=== PATIENT | female | born 1945 | race Caucasian/White ===

== ENCOUNTER 2018-09-19 09:33 | Outpatient (CLI) | payer MEDICARE ==
--- NOTE | 2018-09-19 10:46 | ULT ---
RIGHT UPPER QUADRANT ULTRASOUND: 09/19/2018 HISTORY: Right upper quadrant pain/epigastric pain. COMPARISON: None. TECHNIQUE: Multiplanar rich-scale sonographic imaging of the right upper quadrant provided. FINDINGS: The imaged pancreas is unremarkable. The distal body and tail are obscured by bowel gas. No focal l iver lesion or intrahepatic biliary dilatation noted. The common bile duct measures 3-4 mm, within n ormal limits. The videogame tester reports a negative Roque sign. No gallbladder wall thickening or pericholecystic fl uid. No gallstones are noted. The right kidney measures 9.7 cm in craniocaudal dimension. There is an echogenic area within the mi d pole of the right kidney, measuring 1.1 cm, with posterior shadowing, suggesting a prominent calcif ication and/or calcified mass. When compared to a prior CT of the abdomen and pelvis performed on , there is a focal area of benign appearing calcification within the mid pole of the right ki dney. IMPRESSION: No acute findings. POS: [facility]
== END 2018-09-19 09:34 | disposition home or self-care (01) ==
LOC: BICULT 09:33
PROVIDERS: ATTEND Internal Medicine Gastroenterology
DX: K58.1 Irritable bowel syndrome with constipation (principal); R10.11 Right upper quadrant pain; Z86.010 Personal history of colon polyps
CPT/HCPCS: 76705

== ENCOUNTER 2018-10-06 15:52 | Inpatient (IN) | payer MEDICARE ==
--- NOTE | 2018-10-06 17:48 | RAD ---
AP VIEW PELVIS: Date: 10/06/18 HISTORY: Fall with pain. FINDINGS: AP view of pelvis obtained and demonstrates a mildly displaced right femoral neck fracture. No other pelvic fractures seen. IMPRESSION: Mildly displaced right femoral neck fracture. POS: [facility]
--- NOTE | 2018-10-06 17:50 | RAD ---
RIGHT HIP TWO VIEWS: HISTORY: Fall with pain. TECHNIQUE: AP and lateral views of the right hip are obtained. FINDINGS: Images demonstrate an area of lucency seen in the right femoral neck, concerning for a minimally disp laced right femoral neck fracture. The rest of right hip is unremarkable. IMPRESSION: Right femoral neck fracture. This was not visible on the patient's previous radiograph from 09/25/19. POS: [facility]
[2018-10-06] MEDS ORDERED: Morphine 4 MG/ML VIAL ONE ×2 (18:58→20:09)
--- NOTE | 2018-10-06 19:26 | RAD ---
AP VIEW CHEST: HISTORY: Preoperative chest radiograph. FINDINGS: AP view chest demonstrates calcification of the aorta. Mild cardiomegaly is seen. No evidence of ef fusions, pneumonia, or pneumothorax is seen. IMPRESSION: Unremarkable anterior-posterior view chest. POS: [facility]
[2018-10-06 19:29] LABS: #Basophils 0.1 thou/uL (0.0-0.2); #Eosinphils 0.1 thou/uL (0.0-0.7); #Lymphocytes 3.2 thou/uL (1.20-3.40); #Monocytes 0.7 thou/uL (0.11-0.59); #Neutrophils 8.2 thou/uL (1.40-6.50); %Eosinophils 1.1 % (0.0-10.0); %Monocytes 5.5 % (0.0-10.0); %Neutrophils 66.5 % (42.0-75.0); Hemoglobin 13.4 g/dL (12.0-16.0); Mean Corpuscular HGB CONC 32.6 g/dL (32.0-36.0); Mean Corpuscular Hemoglobin 30.9 pg (27.0-31.0); Mean Corpuscular Volume 94.9 fL (78.0-98.0); Mean Platelet Volume 7.9 fL (7.4-10.4); Platelet Count 254 thou/uL (130-400); Red Blood Cell (RBC) Count 4.32 mill/uL (4.20-5.40); White Blood Cell (WBC) Count 12.3 thou/uL (4.8-10.8)
[2018-10-06 19:34] LABS: PTT 31.2 SEC (22.9-36.1)
[2018-10-06 19:35] LABS: Prothrombin Time 13.1 SEC (12.0-14.7)
[2018-10-06 19:50] LABS: ALT (SGPT) 13 U/L (8-55); AST (SGOT) 19 U/L (5-34); Albumin 4.4 g/dL (3.4-4.8); Alkaline Phosphatase 104 U/L (40-150); Anion Gap 17 mmol/L (10-20); BUN (Urea Nitrogen) 16 mg/dL (9.8-20.1); Bilirubin, Total 0.5 mg/dL (0.2-1.2); CK (CPK) 74 U/L (29-168); Calc. Creatinine Clearance 0 mL/min (70-130); Carbon Dioxide 22 mmol/L (23-31); Chloride 104 mmol/L (98-107); Estimated GFR-MDRD 83; Globulin 3.6 g/dL (2.4-3.5); Glucose 101 mg/dL (83-110); Potassium 3.9 mmol/L (3.5-5.1); Sodium 139 mmol/L (136-145)
[2018-10-06] MEDS ORDERED: Ondansetron PF 4 MG/2 ML Vial ONE (20:36)
[2018-10-06 21:57] LABS: Bilirubin Negative (Negative); Blood, Urine Small (Negative); Clarity CLEAR (Clear); Glucose, Urine (Dipstick) Negative (Negative); Leukocyte Negative (Negative); Nitrite Negative (Negative); Protein, Urine (Dipstick) Negative (Neg-Trace); Specific Gravity, Urine 1.009 (1.002-1.036)
[2018-10-06 21:58] LABS: Bacteria/HPF None Seen HPF (None Seen); Hyaline Casts/LPF 0-3 HYALINE CAST LPF (0-3 Hyaline); Pathc Cast-AUWi Flag 0.43 (0-2.49); Squamous Epithelial 0-3 HPF (0-3); WBC/HPF 0-3 HPF (0-3)
[2018-10-06] MEDS ORDERED: hydrALAZINE 20 MG/ML VIAL SLOW IVP PRN (22:30)
[2018-10-06] MEDS ORDERED: Ondansetron PF 4 MG/2 ML Vial IVP PRN ×2 (22:30→22:33)
[2018-10-06] MEDS ORDERED: Ondansetron ODT 4 MG TAB PO PRN (22:30)
[2018-10-06] MEDS ORDERED: Morphine 4 MG/ML VIAL SLOW IVP PRN ×2 (22:30→22:33)
[2018-10-06] MEDS ORDERED: Dextrose 5% in Water 1,000 ML IV PRN (22:30)
[2018-10-06] MEDS ORDERED: Dextrose 50% Abboject 50 ML SYRINGE SLOW IVP PRN (22:30)
--- NOTE | 2018-10-06 22:31 | HP ---
CONSULTATIONS: Orthopedics, Dr. Funez. HISTORY OF PRESENT ILLNESS: The patient is a 73-year-old female, who on 09/25/2018, had a ground level fall while at work. She was brought to the emergency department where she underwent evaluation and examination and was noted to have negative plain radiographs and sent home with a diagnosis of contusion. Over the next several days, the patient had increasing pain when suddenly it got much worse tonight, she returned to the emergency department where repeat radiographs showed a nondisplaced right femoral neck fracture, at which time, we were asked to admit the patient and obtain Orthopedic consultation. The patient denied any syncopal events or hitting her head and she denies having a repeat fall. ALLERGIES: CODEINE AND MOTRIN. THE PATIENT STATES MORE THAN 30 YEARS AGO, SHE HAD ABDOMINAL/STOMACH ISSUES WITH THESE MEDICATIONS. SHE DENIED RASH OR HIVES. CURRENT MEDICATIONS: MiraLAX and metamucil. PAST MEDICAL HISTORY: The patient denies all and confirms that she does see a medical doctor, but does not require any medications. PAST SURGICAL HISTORY: Tonsillectomy. SOCIAL HISTORY: The patient smokes approximately half pack of cigarettes per day and has for approximately 30 years. Occasional alcohol use. Denies drug use. The patient lives independently at home and prior to her fall, ambulated without the assistance of a walker. FAMILY MEDICAL HISTORY: Hypertension. REVIEW OF SYSTEMS: 10-point review of systems is negative except as otherwise stated. PHYSICAL EXAMINATION: VITAL SIGNS: Blood pressure 143/64, heart rate 78, respirations 17, oxygen saturation 93% on room air, and temperature is 97.7. GENERAL: The patient is resting comfortably in the ER bed. She is awake, alert, and oriented x3. [place] Coma Scale is 15. HEENT: Head is normocephalic and atraumatic. Extraocular motions intact. PERRLA bilaterally. Ears are atraumatic without discharge. Nose, atraumatic without discharge. Oropharynx is clear. NECK: Nontender. Trachea is midline. No JVD. CHEST: Clear to auscultation with good inspiratory and expiratory effort. HEART: Regular rate and rhythm. ABDOMEN: Soft, flat, and nontender with active bowel sounds. PELVIS: Stable with tenderness to palpation to right hip consistent with her fracture. EXTREMITIES: Neurovascularly intact x4. Capillary refill is less than 3 seconds. BACK: Atraumatic and nontender. LABORATORY FINDINGS: White blood cell count 12.3, hemoglobin 13.4, hematocrit 41.0, platelets 254. Sodium 139, potassium 3.9, chloride 104, CO2 of 22, BUN 16, creatinine 0.69, glucose 101. PT 13, INR 1.0, PTT 31. Urinalysis; 7-10 rbc's, 0 to 3 wbc's, no bacteria, negative LE and nitrite. RADIOGRAPHIC FINDINGS: AP pelvis shows a mildly displaced right femoral neck fracture. Views of the right hip show a right femoral neck fracture. AP chest x-ray is unremarkable. ASSESSMENT AND PLAN: 1. Status post ground level fall with remote presentation. 2. Right femoral neck fracture. 3. Pain secondary to trauma. PLAN: Will be to admit the patient to the surgical floor. Make n.p.o. after midnight. Pain medication, pulmonary toilet, gastritis, and mechanical VTE prophylaxis. The evaluation, examination, laboratory, and radiographic findings will be discussed with Dr. Mena after this dictation. Job ID: [id number]
[2018-10-06] MEDS ORDERED: Ondansetron ODT 4 MG TAB SL PRN (22:33)
[2018-10-06] MEDS ORDERED: Acetaminophen 325 MG TAB PO PRN (22:33)
[2018-10-06] MEDS: Sodium Chloride 0.9% 1,000 ML IV SCH (22:50)
[2018-10-06 22:52] VITALS: BMI 23.6
[2018-10-06] MEDS ORDERED: Famotidine 20 MG TAB PO SCH (23:30)
[2018-10-06] MEDS: Acetaminophen 1,000 MG in Premix Bag 1 BAG IVPB SCH (23:33)
[2018-10-06] MEDS: D5 1/2 NS w/20 mEq KCL 1,000 ML IV SCH (23:38)
[2018-10-07] MEDS: Acetaminophen 1,000 MG in Premix Bag 1 BAG IVPB SCH ×2 (05:17→12:12)
[2018-10-07 05:19] LABS: #Basophils 0.1 thou/uL (0.0-0.2); #Eosinphils 0.1 thou/uL (0.0-0.7); #Lymphocytes 2.7 thou/uL (1.20-3.40); #Monocytes 0.5 thou/uL (0.11-0.59); #Neutrophils 4.9 thou/uL (1.40-6.50); %Basophils 1.1 % (0.0-1.0); %Eosinophils 0.8 % (0.0-10.0); %Lymphocytes 32.7 % (21.0-51.0); %Monocytes 6.3 % (0.0-10.0); %Neutrophils 59.1 % (42.0-75.0); Mean Corpuscular HGB CONC 31.9 g/dL (32.0-36.0); Mean Corpuscular Hemoglobin 30.8 pg (27.0-31.0); Mean Corpuscular Volume 96.8 fL (78.0-98.0); Mean Platelet Volume 8.1 fL (7.4-10.4); Platelet Count 203 thou/uL (130-400); RBC Distribution Width 12.1 % (11.5-14.5); Red Blood Cell (RBC) Count 3.56 mill/uL (4.20-5.40); White Blood Cell (WBC) Count 8.4 thou/uL (4.8-10.8)
[2018-10-07 05:34] LABS: Anion Gap 9 mmol/L (10-20); BUN (Urea Nitrogen) 15 mg/dL (9.8-20.1); Calc. Creatinine Clearance 69 mL/min (70-130); Calcium 8.7 mg/dL (7.8-10.44); Carbon Dioxide 25 mmol/L (23-31); Chloride 110 mmol/L (98-107); Estimated GFR-MDRD Greater than 90; Glucose 99 mg/dL (83-110); Potassium 3.8 mmol/L (3.5-5.1); Sodium 140 mmol/L (136-145)
[2018-10-07] MEDS ORDERED: CEFAZOLIN/Water 2 GM/20 ML SYRINGE SLOW IVP SCH ×2 (07:30→13:30)
[2018-10-07] MEDS ORDERED: Vancomycin HCl 1 GM in Premix Bag 1 BAG IVPB SCH (07:30)
[2018-10-07] MEDS ORDERED: CEFAZOLIN 2 GM/50 ML-DEXTROSE 2 GM in Premix Bag 1 BAG IVPB SCH (07:30)
[2018-10-07] MEDS ORDERED: Tranexamic Acid 1,000 MG in Sodium Chloride 0.9% 250 ML 250 ML IVPB SCH (07:30)
[2018-10-07] MEDS: Sodium Chloride 0.9% 1,000 ML IV SCH (08:01)
[2018-10-07] MEDS: Famotidine 20 MG TAB PO SCH ×2 (08:02→20:21)
[2018-10-07] MEDS: D5 1/2 NS w/20 mEq KCL 1,000 ML IV SCH ×2 (08:10→17:04)
[2018-10-07] MEDS ORDERED: Potassium Chloride 40 MEQ in Premix Bag 1 BAG IVPB SCH (08:30)
[2018-10-07 08:44] LABS: Magnesium 1.9 mg/dL (1.6-2.6)
[2018-10-07] MEDS ORDERED: Scopolamine 1.5 mg/72 hour Patch TD SCH (09:00)
--- NOTE | 2018-10-07 09:52 | PRG ---
DATE OF SERVICE: 10/07/2018 SUBJECTIVE: Ms. Foy is a 73-year-old woman, who suffered a right femoral neck fracture following a ground level fall. The patient is awake and alert this morning with a [place] Coma Scale of 15. She reports some nausea with 1 bout of bilious emesis this morning. The nausea is exacerbated with movement. Otherwise, she reports adequate pain control. She denies any chest pain, dyspnea, or syncope. OBJECTIVE: VITAL SIGNS: This morning include blood pressure is 133/63, pulse 60, respiratory rate is 18, temperature 97.8 degrees Fahrenheit, oxygen saturation 98% on room air. HEART: Reveals regular rate and rhythm. No murmurs or gallops auscultated. LUNGS: Clear to auscultation bilaterally. Breathing, regular and nonlabored. ABDOMEN: Soft, nontender, nondistended. EXTREMITIES: Reveal 2+ radial and pedal pulses bilaterally. No ankle edema is present. NEUROLOGIC: Reveals no focal deficits present. LABORATORY FINDINGS: Today include a CBC with 8400 white blood cells, hemoglobin and hematocrit 11.0 and 34.4 respectively. Platelet count 203,000. Metabolic profile; sodium is 140, potassium is 3.8, chloride is 110, bicarb is 25, BUN is 15, creatinine is 0.64, glucose is 99, magnesium is 1.9, phosphorus is 4.0. IMPRESSION: 1. Post injury day #1, status post ground level fall. 2. Right femoral neck fracture. 3. Acute hypokalemia. 4. Acute hypomagnesemia. PLAN: 1. Correct abnormal electrolytes. 2. The patient is hemodynamically stable to proceed to surgery for repair of her femoral neck fracture at the discretion of the Orthopedic Surgery Service. 3. We will place the scopolamine patch behind the ear to treat positional vertigo, which is likely the etiology of her nausea. 4. Both findings and plan have been discussed with the patient, who indicates understanding information given. 5. I have answered her questions. Job ID: [id number]
[2018-10-07] MEDS ORDERED: Fentanyl 100 MCG/2 ML VIAL ONE (10:29)
[2018-10-07] MEDS ORDERED: Midazolam HCl 2 mg/2 ml Vial ONE (10:29)
[2018-10-07] MEDS ORDERED: CEFAZOLIN 2 GM/50 ML BAG ONE (12:29)
[2018-10-07] MEDS ORDERED: Lidocaine 1.5% w/Epi 1:200K 30 ML VIAL (Epid Use) ONE (12:30)
[2018-10-07] MEDS ORDERED: Fentanyl 100 MCG/2 ML VIAL SLOW IVP PRN (13:20)
[2018-10-07] MEDS ORDERED: traMADol HCl 50 MG TAB PO PRN ×3 (13:20→13:45)
[2018-10-07] MEDS ORDERED: Zolpidem Tartrate 5 MG TAB PO PRN ×2 (13:20→13:45)
[2018-10-07] MEDS ORDERED: Morphine 4 MG/ML VIAL SLOW IVP PRN (13:20)
[2018-10-07] MEDS ORDERED: Acetaminophen 325 MG TAB PO PRN (13:20)
[2018-10-07] MEDS ORDERED: Ondansetron PF 4 MG/2 ML Vial IVP PRN ×2 (13:20→13:45)
[2018-10-07] MEDS ORDERED: Promethazine HCl 25 MG/ML VIAL IM PRN ×2 (13:20→13:45)
[2018-10-07] MEDS ORDERED: Ketorolac Tromethamine 30 MG/ML VIAL IM PRN (13:20)
[2018-10-07] MEDS ORDERED: diphenhydrAMINE 25 MG CAP PO PRN ×2 (13:20→13:45)
[2018-10-07] MEDS ORDERED: HYDROcodone/Acetaminophen 10/325 mg Tablet PO PRN ×2 (13:20)
[2018-10-07] MEDS ORDERED: Polyethylene Glycol 3350 17 GM Packet PO PRN (13:24)
[2018-10-07] MEDS ORDERED: Metamucil PACK PO PRN (13:24)
[2018-10-07] MEDS ORDERED: Bupivacaine 0.25% 10 ML VIAL EPIDURAL PRN (13:45)
[2018-10-07] MEDS ORDERED: diphenhydrAMINE 50 MG/ML VIAL IVP PRN (13:45)
[2018-10-07] MEDS ORDERED: HYDROcodone/Acetaminophen 5/325 mg Tablet PO PRN ×2 (13:45)
[2018-10-07] MEDS ORDERED: diphenhydrAMINE 50 MG/ML VIAL IM PRN (13:45)
[2018-10-07] MEDS ORDERED: Promethazine HCl 25 MG SUPP PR PRN (13:45)
[2018-10-07] MEDS ORDERED: Naloxone HCl 0.4 mg/ml Vial IV PRN (13:45)
[2018-10-07] MEDS ORDERED: Naloxone HCl 0.4 mg/ml Vial IVP PRN (13:45)
[2018-10-07] MEDS ORDERED: Hydrocerin (Eucerin) Cream 120 gm Jar TOP PRN (13:45)
[2018-10-07] MEDS ORDERED: Bupivacaine HCl 0.5%/Epinephrine 1:200,000/PF 30 ml Vial ONE (13:50)
[2018-10-07] MEDS: Potassium Chloride 40 MEQ in Sodium Chloride 0.9% 250 ML 250 ML IVPB SCH ×2 (13:56→17:05)
[2018-10-07] MEDS ORDERED: Sodium Chloride 0.65% Nasal 44 ML BOT EA NARE PRN (14:37)
[2018-10-07] MEDS ORDERED: Artificial Tear Sol 15 ML BOT EA EYE PRN (14:37)
[2018-10-07] MEDS ORDERED: Calcium Carbonate 500 MG ChewTAB PO PRN (14:37)
[2018-10-07] MEDS ORDERED: Loperamide HCl 2 MG CAP PO PRN (14:37)
[2018-10-07] MEDS ORDERED: Cepastat Lozenges 1 LOZ PO PRN (14:37)
[2018-10-07] MEDS ORDERED: Eucerin (Mineral Oil/Petrolatum,White) 30 gm Jar TOP PRN (14:37)
[2018-10-07] MEDS ORDERED: Diabetic Tussin 200 MG/10 ML UDCUP PO PRN (14:37)
--- NOTE | 2018-10-07 14:39 | PDOC.PN ---
- Subjective Encounter Start Date: 10/07/18 Encounter Start Time: 15:48 -: old records requested/rev pt seen in PACU, she is sleepy but arousable, Patient seen and examined. No overnight events - Objective Resuscitation Status - Order Detail: 10/07/18 14:37 Resuscitation Status Routine Resuscitation Status: FULL: Full Resuscitation MAR Reviewed: Yes Vital Signs & Weight: Vital Signs (12 hours) Temp Pulse Resp BP Pulse Ox 10/07/18 11:11 97.9 F 55 L 18 129/66 93 L 10/07/18 08:00 93 L 10/07/18 07:20 97.8 F 60 18 133/63 98 10/07/18 04:25 97.8 F 60 17 127/65 94 L Weight Weight 125 lb I&O: 10/06/18 10/07/18 10/08/18 06:59 06:59 06:59 Intake Total 1280 Balance 1280 Result Diagrams: 10/07/18 05:04 10/07/18 05:04 Additional Labs: old record reviewed Radiology Reviewed by me: Yes Phys Exam - Physical Examination Constitutional: NAD HEENT: PERRLA, moist MMs, sclera anicteric Neck: no JVD, supple Respiratory: no wheezing, no rales, no rhonchi Cardiovascular: RRR, no significant murmur, no rub Gastrointestinal: soft, non-tender, no distention, positive bowel sounds epidural, fox+ Musculoskeletal: no edema, pulses present surgical site with dressing Neurological: non-focal, normal sensation Lymphatic: no nodes Psychiatric: normal affect, A&O x 3 Skin: no rash, normal turgor Dx/Plan (1) Femoral neck fracture Code(s): S72.009A - FRACTURE OF UNSP PART OF NECK OF UNSP FEMUR, INIT Status: Acute Qualifiers: Laterality: right Comment: s/p surgical repair (2) Anemia due to blood loss Code(s): D50.0 - IRON DEFICIENCY ANEMIA SECONDARY TO BLOOD LOSS (CHRONIC) Status: Acute (3) Fall Code(s): W19.XXXA - UNSPECIFIED FALL, INITIAL ENCOUNTER Status: Acute Qualifiers: Encounter type: subsequent encounter Qualified Code(s): W19.XXXD - Unspecified fall, subsequent encounter - Plan cont current plan of care, PT/OT * medication reviewed as below * symptomatic treatment * home medication reconciled * epidural as per anesthesia * PT/OT as per [facility] protocol * pain control * code status full code * will follow. * pepcid for GI prophylaxis. Review of Systems - Review of Systems ENT: negative: Ear Pain, Ear Discharge, Nose Pain, Nose Discharge, Nose Congestion, Mouth Pain, Mouth Swelling, Throat Pain, Throat Swelling, Other Respiratory: negative: Cough, Dry, Shortness of Breath, Hemoptysis, SOB with Excertion, Pleuritic Pain, Sputum, Wheezing Cardiovascular: negative: chest pain, palpitations, orthopnea, paroxysmal nocturnal dyspnea, edema, light headedness, other Gastrointestinal: negative: Nausea, Vomiting, Abdominal Pain, Diarrhea, Constipation, Melena, Hematochezia, Other Genitourinary: negative: Dysuria, Frequency, Incontinence, Hematuria, Retention , Other Musculoskeletal: negative: Neck Pain, Shoulder Pain, Arm Pain, Back Pain, Hand Pain, Leg Pain, Foot Pain, Other Skin: negative: Rash, Lesions, Mckay, Bruising, Other - Medications/Allergies Allergies/Adverse Reactions: Allergies Allergy/AdvReac Type Severity Reaction Status Date / Time codeine Allergy Verified 10/06/18 22:33 ibuprofen [From Motrin] Allergy Verified 10/06/18 22:33 Medications: Current Medications Acetaminophen (Tylenol) 650 mg PO Q4H PRN PRN Reason: Headache/Fever or Pain Hydrocodone Bitart/Acetaminophen ([place] 5/325) 1 tab PO Q4H PRN PRN Reason: Mild Pain 1-3 Hydrocodone Bitart/Acetaminophen ([place] 5/325) 2 tab PO Q4H PRN PRN Reason: For Moderate Pain 4-6 Albuterol/Ipratropium (Duoneb) 3 ml NEB Q4H PRN PRN Reason: Wheezing Artificial Tears (Tears Naturale) 2 drop EA EYE PRN PRN PRN Reason: Dry Eyes Aspirin (Ecotrin) 81 mg PO BID [facility] Bupivacaine HCl (Marcaine) 5 ml EPIDURAL ONE PRN PRN Reason: UNCONTROLLED PAIN Stop: 10/07/18 23:00 Calcium Carbonate (Tums) 1,000 mg PO Q4H PRN PRN Reason: Heartburn or Indigestion Dextrose/Water (Dextrose 50%) 25 gm SLOW IVP PRN PRN PRN Reason: Hypoglycemia Diphenhydramine HCl (Benadryl) 25 mg PO Q3H PRN PRN Reason: Itching Diphenhydramine HCl (Benadryl) 25 mg IM Q3H PRN PRN Reason: Itching Diphenhydramine HCl (Benadryl) 25 mg IVP Q3H PRN PRN Reason: Itching Emollient Cream (Hydrocerin Cream) 0 gm TOP PRN PRN PRN Reason: Itching Famotidine (Pepcid) 20 mg PO BID [facility] Last Admin: 10/07/18 08:02 Dose: 20 mg Ferrous Gluconate (Fergon) 324 mg PO BID[facility] Glucagon (Glucagon) 1 mg IM PRN PRN PRN Reason: Hypoglycemia Guaifenesin (Robitussin Sf) 200 mg PO Q4H PRN PRN Reason: Cough Hydralazine HCl (Apresoline) 10 mg SLOW IVP Q4H PRN PRN Reason: SBP > 170 or DBP > 100 Potassium Chloride/Dextrose/Sod Cl (D5 1/2 Ns W/20 Meq Kcl) 1,000 mls @ 100 mls /hr IV .Q10H [facility] Last Admin: 10/07/18 08:10 Dose: Not Given Dextrose/Water (D5w) 1,000 mls @ 0 mls/hr IV .Q0M PRN PRN Reason: Hypoglycemia Sodium Chloride (Normal Saline 0.9%) 1,000 mls @ 120 mls/hr IV .Q8H20M [facility] Stop: 10/07/18 16:34 Last Admin: 10/07/18 08:01 Dose: 1,000 mls Potassium Chloride 40 meq/ (Sodium Chloride) 270 mls @ 67.5 mls/hr IVPB 1300 [facility] Stop: 10/07/18 16:59 Last Admin: 10/07/18 13:56 Dose: Not Given Fentanyl Citrate (Fentanyl/Bupivacaine) 100 mls @ 6 mls/hr EPIDURAL INF [facility] Cefazolin Sodium/Dextrose 2 gm (/ Device) 50 mls @ 100 mls/hr IVPB 0500,1300, 2100 [facility] Stop: 10/08/18 05:29 Influenza Virus Vacc Triv Types A&B (Fluzone High-Dose Syr) 0.5 ml IM .ONCE ONE Stop: 10/08/18 09:01 Iron/Minerals/Multivitamins (Theragran M) 1 tab PO DAILY DENICE Loperamide HCl (Imodium) 2 mg PO PRN PRN PRN Reason: Diarrhea/Loose Stools Mineral Oil/White Petrolatum (Eucerin Cream) 0 gm TOP BIDPRN PRN PRN Reason: Dry Skin Miscellaneous Information (Communication Order-Pharmacy) 1 each FS ASDIR DENICE Naloxone HCl (Narcan) 0.2 mg IV Q5MIN PRN PRN Reason: RR <=8 OR OBTUNDED/UNAROUSABLE Naloxone HCl (Narcan) 0.1 mg IVP Q15MIN PRN PRN Reason: URINARY RETENTION Ondansetron HCl (Zofran Odt) 4 mg PO Q6H PRN PRN Reason: Nausea/Vomiting Ondansetron HCl (Zofran) 4 mg IVP Q6H PRN PRN Reason: Nausea/Vomiting Polyethylene Glycol (Miralax) 238 gm PO PRN PRN PRN Reason: Constipation Promethazine HCl (Phenergan) 12.5 mg IM Q4H PRN PRN Reason: Nausea Promethazine HCl (Phenergan Suppository) 25 mg [place] Q4H PRN PRN Reason: Nausea/Vomiting Psyllium Hydrophilic Mucilloid (Metamucil) 1 pk PO PRN PRN PRN Reason: Constipation Scopolamine (Transderm Scop) 1.5 mg TD Q3D [facility] Last Admin: 10/07/18 09:19 Dose: 1.5 mg Senna/Docusate Sodium (Senokot S) 2 tab PO BID [facility] Sodium Chloride (Flush - Normal Saline) 10 ml IVF PRN PRN PRN Reason: Saline Flush Sodium Chloride (Hand Nasal [place] 0.65%) 0 ml EA NARE QIDPRN PRN PRN Reason: Nasal Congestion Throat Lozenges (Cepastat Lozenges) 1 julianna PO Q2H PRN PRN Reason: Sore Throat Tramadol HCl (Ultram) 50 mg PO Q6H PRN PRN Reason: Mild Pain 1-3 Tramadol HCl (Ultram) 100 mg PO Q6H PRN PRN Reason: Moderate Pain 4-6 Zolpidem Tartrate (Ambien) 5 mg PO HSPRN PRN PRN Reason: Insomnia
--- NOTE | 2018-10-07 15:46 | RAD ---
TWO VIEWS RIGHT HIP: Comparison: 10-06-18 History: Right hip fracture status post right hip arthroplasty. FINDINGS: Two views right hip shows the patient to be status post right arthroplasty without perihardware lucen cy or fracture. Air in the soft tissues is from recent surgery. IMPRESSION: Status post right hip arthroplasty without evidence of complication. POS: [facility]
[2018-10-07] MEDS ORDERED: Rocuronium Bromide 10 MG/ML (10ML VIAL) ONE (16:40)
[2018-10-07] MEDS ORDERED: PHENYLEPHRINE-NS 100 MCG/ML 10 ML SYRINGE ONE (16:40)
[2018-10-07] MEDS ORDERED: Glycopyrrolate 0.2 MG/ML 5 ML SYRINGE ONE (16:40)
[2018-10-07] MEDS ORDERED: PROPOFOL 200 MG/20 ML VIAL ONE (16:40)
[2018-10-07] MEDS: CEFAZOLIN 2 GM/50 ML-DEXTROSE 2 GM in Premix Bag 1 BAG IVPB SCH (20:17)
[2018-10-08] MEDS: CEFAZOLIN 2 GM/50 ML-DEXTROSE 2 GM in Premix Bag 1 BAG IVPB SCH (04:56)
[2018-10-08] MEDS: D5 1/2 NS w/20 mEq KCL 1,000 ML IV SCH (04:58)
[2018-10-08 05:13] LABS: Mean Corpuscular HGB CONC 32.3 g/dL (32.0-36.0); Mean Corpuscular Hemoglobin 31.1 pg (27.0-31.0); Mean Corpuscular Volume 96.2 fL (78.0-98.0); Mean Platelet Volume 8.2 fL (7.4-10.4); Platelet Count 197 thou/uL (130-400); RBC Distribution Width 11.9 % (11.5-14.5); White Blood Cell (WBC) Count 14.6 thou/uL (4.8-10.8)
[2018-10-08 05:38] LABS: Anion Gap 11 mmol/L (10-20); BUN (Urea Nitrogen) 13 mg/dL (9.8-20.1); Calc. Creatinine Clearance 68 mL/min (70-130); Calcium 8.5 mg/dL (7.8-10.44); Carbon Dioxide 21 mmol/L (23-31); Chloride 111 mmol/L (98-107); Estimated GFR-MDRD 89; Glucose 135 mg/dL (83-110); Magnesium 1.8 mg/dL (1.6-2.6); Phosphorus 2.5 mg/dL (2.3-4.7); Potassium 4.3 mmol/L (3.5-5.1); Sodium 139 mmol/L (136-145)
[2018-10-08] MEDS: Fentanyl/Bupivacaine 100 ML EPIDURAL SCH ×2 (05:54→22:36)
--- NOTE | 2018-10-08 08:13 | OP ---
DATE OF PROCEDURE: 10/07/2018 PREOPERATIVE DIAGNOSIS: Right femoral neck fracture. POSTOPERATIVE DIAGNOSIS: Right femoral neck fracture. PROCEDURE PERFORMED: Right total hip arthroplasty using an Accolade 2.5 stem with a standard head, 52 mm PSL cup with an X3 liner. LIVESTOCK BRANDS INSPECTOR: Kumar Escobar PA-C. BLOOD LOSS: 100. SPECIMEN: None. DRAINS: None. COMPLICATION: None. PROCEDURE IN DETAIL: After informed consent was obtained in the preoperative holding area, the patient was taken to the operative suite where general anesthesia was induced. The patient was then positioned in the lateral decubitus position. The hip was then prepped and draped in usual sterile fashion. The patient received preoperative antibiotics. Prior to incision, time-out was called and all members of the surgical team agreed upon site, surgeon, and patient. After this, a longitudinal incision was made directly over the trochanter, noted by palpation extending 2 fingerbreadths above and below the trochanter. The deeper subcutaneous layer was undermined with Bovie electrocautery. The iliotibial band was encountered and incised sharply and the plane below this was developed bluntly. A Charnley retractor was placed to hold this opened. The lateral aspect of the trochanter and the abductor muscles were encountered and then reflected anteriorly off the trochanter using Bovie electrocautery. Once this was completed, the anterior capsule was then encountered and identified and copious capsulotomy was carried out, exposing the femoral neck and head. Dislocation maneuver was then performed and an in situ provisional neck cut was then made using the oscillating saw. Attention was then turned to acetabular preparation and sequential reaming was carried out up to the appropriate diameter. A trial was then malleted into place with good firm resistance and no pullout. The permanent acetabular shell was then malleted squarely into place, as was the appropriate liner. Once completed, the wound was copiously irrigated and attention was then turned to femoral preparation. Flexion and external rotation were performed of the exposed thigh and femoral elevators were then placed at the proximal aspect of the wound. Canal finder was used to establish the length of the canal and sequential reaming was carried out, followed by broaching. Once the appropriate stability was established with the trial broaches with flexion, extension and rotational stability, we did trial with neutral and 2 mm offset incremental necks. Once the appropriate size was decided upon, with good stability noted with flexion, extension, internal and external rotation and shuck being negative, we removed the femoral trial broach and malletted into place the permanent prosthesis with good firm fit, which was also stable to rotation. Again, the hip felt very stable to flexion, extension, internal and external rotation. Leg lengths appeared near anatomic clinically and we were quite happy with prosthesis placement. Copious irrigation was then carried out through the entirety of the wound. Primary closure of the abductors was accomplished with interrupted #2 Vicryl [id number] stitches and the IT band was then closed with interrupted #2 Vicryl, oversewn with a #2 running barbed Quill stitch. Subcutaneous fascia was closed with running barbed Quill stitch and a subcuticular Monocryl barbed Quill stitch was used for skin closure and augmented with skin cement. A sterile dressing was applied. The procedure was terminated without any complication. All counts were correct. The patient was awakened in the operative suite and taken to the recovery room in stable condition. Job ID: [id number]
[2018-10-08] MEDS: Aspirin 81 mg Enteric Coated Tablet PO SCH ×3 (09:00→20:22)
[2018-10-08] MEDS: Senokot S 8.6-50 MG TAB PO SCH ×2 (10:04→20:21)
[2018-10-08] MEDS: Ferrous Gluconate 324 MG TAB PO SCH ×2 (10:05→17:56)
[2018-10-08] MEDS: Famotidine 20 MG TAB PO SCH ×2 (10:05→20:22)
[2018-10-08] MEDS: Multivitamin W/ Minerals 1 TAB PO SCH (10:05)
--- NOTE | 2018-10-08 10:51 | PDOC.PN ---
- Subjective Encounter Start Date: 10/08/18 Encounter Start Time: 08:50 Patient seen and examined. No new complaints. No overnight events her pain is controlled, no dizziness, - Objective Resuscitation Status - Order Detail: 10/07/18 14:37 Resuscitation Status Routine Resuscitation Status: FULL: Full Resuscitation MAR Reviewed: Yes Vital Signs & Weight: Vital Signs (12 hours) Temp Pulse Resp BP Pulse Ox 10/08/18 08:25 98.0 F 79 15 106/55 L 91 L 10/08/18 04:13 98.0 F 64 16 93/54 L 93 L 10/08/18 00:05 98.1 F 67 16 103/54 L 96 Weight Weight 125 lb I&O: 10/07/18 10/08/18 10/09/18 06:59 06:59 06:59 Intake Total 1280 1915 Output Total 850 Balance 1280 1065 Result Diagrams: 10/08/18 04:49 10/08/18 04:49 Phys Exam - Physical Examination Constitutional: NAD HEENT: PERRLA, moist MMs, sclera anicteric Neck: no JVD, supple Respiratory: no wheezing, no rales, no rhonchi Cardiovascular: RRR, no significant murmur, no rub Gastrointestinal: soft, non-tender, no distention, positive bowel sounds Musculoskeletal: no edema, pulses present epidural in place surgical site with dressing Neurological: non-focal, normal sensation, moves all 4 limbs Psychiatric: normal affect, A&O x 3 Skin: no rash, normal turgor Dx/Plan (1) Femoral neck fracture Code(s): S72.009A - FRACTURE OF UNSP PART OF NECK OF UNSP FEMUR, INIT Status: Acute Qualifiers: Laterality: right Comment: s/p surgical repair (2) Anemia due to blood loss Code(s): D50.0 - IRON DEFICIENCY ANEMIA SECONDARY TO BLOOD LOSS (CHRONIC) Status: Acute (3) Fall Code(s): W19.XXXA - UNSPECIFIED FALL, INITIAL ENCOUNTER Status: Acute Qualifiers: Encounter type: subsequent encounter Qualified Code(s): W19.XXXD - Unspecified fall, subsequent encounter - Plan cont current plan of care, PT/OT, social human services assistants * medication reviewed as below * symptomatic treatment * epidural as per anesthesia * PT/OT * pain controlled * pepcid for GI prophylaxis. * will sign off today Review of Systems - Review of Systems ENT: negative: Ear Pain, Ear Discharge, Nose Pain, Nose Discharge, Nose Congestion, Mouth Pain, Mouth Swelling, Throat Pain, Throat Swelling, Other Respiratory: negative: Cough, Dry, Shortness of Breath, Hemoptysis, SOB with Excertion, Pleuritic Pain, Sputum, Wheezing Cardiovascular: negative: chest pain, palpitations, orthopnea, paroxysmal nocturnal dyspnea, edema, light headedness, other Gastrointestinal: negative: Nausea, Vomiting, Abdominal Pain, Diarrhea, Constipation, Melena, Hematochezia, Other Genitourinary: negative: Dysuria, Frequency, Incontinence, Hematuria, Retention , Other Musculoskeletal: negative: Neck Pain, Shoulder Pain, Arm Pain, Back Pain, Hand Pain, Leg Pain, Foot Pain, Other Skin: negative: Rash, Lesions, Mckay, Bruising, Other - Medications/Allergies Allergies/Adverse Reactions: Allergies Allergy/AdvReac Type Severity Reaction Status Date / Time codeine Allergy Verified 10/06/18 22:33 ibuprofen [From Motrin] Allergy Verified 10/06/18 22:33 Medications: Current Medications Acetaminophen (Tylenol) 650 mg PO Q4H PRN PRN Reason: Headache/Fever or Pain Hydrocodone Bitart/Acetaminophen ([place] 5/325) 1 tab PO Q4H PRN PRN Reason: Mild Pain 1-3 Hydrocodone Bitart/Acetaminophen ([place] 5/325) 2 tab PO Q4H PRN PRN Reason: For Moderate Pain 4-6 Albuterol/Ipratropium (Duoneb) 3 ml NEB Q4H PRN PRN Reason: Wheezing Artificial Tears (Tears Renewed 15ml Bottle) 2 drop EA EYE PRN PRN PRN Reason: Dry Eyes Aspirin (Ecotrin) 81 mg PO BID DENICE Calcium Carbonate (Tums) 1,000 mg PO Q4H PRN PRN Reason: Heartburn or Indigestion Dextrose/Water (Dextrose 50%) 25 gm SLOW IVP PRN PRN PRN Reason: Hypoglycemia Diphenhydramine HCl (Benadryl) 25 mg PO Q3H PRN PRN Reason: Itching Last Admin: 10/08/18 10:12 Dose: 25 mg Diphenhydramine HCl (Benadryl) 25 mg IM Q3H PRN PRN Reason: Itching Diphenhydramine HCl (Benadryl) 25 mg IVP Q3H PRN PRN Reason: Itching Emollient Cream (Hydrocerin Cream) 0 gm TOP PRN PRN PRN Reason: Itching Famotidine (Pepcid) 20 mg PO BID [facility] Last Admin: 10/08/18 10:05 Dose: 20 mg Ferrous Gluconate (Fergon) 324 mg PO BID-WM [facility] Last Admin: 10/08/18 10:05 Dose: 324 mg Glucagon (Glucagon) 1 mg IM PRN PRN PRN Reason: Hypoglycemia Guaifenesin (Robitussin Sf) 200 mg PO Q4H PRN PRN Reason: Cough Hydralazine HCl (Apresoline) 10 mg SLOW IVP Q4H PRN PRN Reason: SBP > 170 or DBP > 100 Fentanyl Citrate (Fentanyl/Bupivacaine) 100 mls @ 6 mls/hr EPIDURAL INF [facility] Last Admin: 10/08/18 05:54 Dose: 100 mls Iron/Minerals/Multivitamins (Theragran M) 1 tab PO DAILY [facility] Last Admin: 10/08/18 10:05 Dose: 1 tab Loperamide HCl (Imodium) 2 mg PO PRN PRN PRN Reason: Diarrhea/Loose Stools Mineral Oil/White Petrolatum (Eucerin Cream) 0 gm TOP BIDPRN PRN PRN Reason: Dry Skin Miscellaneous Information (Communication Order-Pharmacy) 1 each FS ASDIR [facility] Naloxone HCl (Narcan) 0.2 mg IV Q5MIN PRN PRN Reason: RR <=8 OR OBTUNDED/UNAROUSABLE Naloxone HCl (Narcan) 0.1 mg IVP Q15MIN PRN PRN Reason: URINARY RETENTION Ondansetron HCl (Zofran Odt) 4 mg PO Q6H PRN PRN Reason: Nausea/Vomiting Ondansetron HCl (Zofran) 4 mg IVP Q6H PRN PRN Reason: Nausea/Vomiting Polyethylene Glycol (Miralax) 238 gm PO PRN PRN PRN Reason: Constipation Promethazine HCl (Phenergan) 12.5 mg IM Q4H PRN PRN Reason: Nausea Promethazine HCl (Phenergan Suppository) 25 mg NH Q4H PRN PRN Reason: Nausea/Vomiting Psyllium Hydrophilic Mucilloid (Metamucil) 1 pk PO PRN PRN PRN Reason: Constipation Scopolamine (Transderm Scop) 1.5 mg TD Q3D [facility] Last Admin: 10/07/18 09:19 Dose: 1.5 mg Senna/Docusate Sodium (Senokot S) 2 tab PO BID [facility] Last Admin: 10/08/18 10:04 Dose: 2 tab Sodium Chloride (Flush - Normal Saline) 10 ml IVF PRN PRN PRN Reason: Saline Flush Sodium Chloride ([place] 0.65%) 0 ml EA NARE QIDPRN PRN PRN Reason: Nasal Congestion Throat Lozenges (Cepastat Lozenges) 1 julianna PO Q2H PRN PRN Reason: Sore Throat Tramadol HCl (Ultram) 50 mg PO Q6H PRN PRN Reason: Mild Pain 1-3 Tramadol HCl (Ultram) 100 mg PO Q6H PRN PRN Reason: Moderate Pain 4-6 Zolpidem Tartrate (Ambien) 5 mg PO HSPRN PRN PRN Reason: Insomnia
--- NOTE | 2018-10-08 11:54 | PRG ---
DATE OF SERVICE: The patient was admitted under Trauma Team after mechanical fall and she was found with right femoral neck fracture. The patient underwent yesterday right total hip arthroplasty. Sound Team was consulted for medical comanagement, but this patient does not have any medical issue. She has mild postoperative blood loss secondary to fracture, but she does not require any blood transfusions. She is doing great at this point. The patient will need PT, OT, pain control, and eventual discharge planning. The patient does not need any medical need. Call if you have any questions and we will sign off from today. Job ID: [id number]
--- NOTE | 2018-10-08 14:18 | PRG ---
DATE OF SERVICE: 10/08/2018 SUBJECTIVE: Ms. Foy is a 73-year-old woman, who suffered a right femoral neck fracture following a ground level fall. The patient is postop day #1 right total hip replacement. The patient is awake and alert this morning with a GCS of 15. The patient denies any nausea or vomiting at this time. The patient reports that her pain is well controlled. The patient does have an epidural. The patient denies any other complaints such as chest pain, shortness of breath, or syncope. The patient does report itching to her chest. OBJECTIVE: VITAL SIGNS: Blood pressure 106/55, SpO2 of 93% on room air, respirations 15, pulse 79, and temperature 98.0. GENERAL: The patient is awake and alert, in no distress. CARDIOVASCULAR: Regular rate and rhythm. RESPIRATORY: Breathing is regular and nonlabored, no distress. ABDOMEN: Soft, nontender, nondistended. SKIN: [place], no rashes noted. Mucous membranes moist. EXTREMITIES: No pedal edema present. Bilateral pedal pulses 2+. NEUROLOGIC: No focal deficits present. LABORATORY DATA: WBC 14.6, RBC 3.20, hemoglobin 10.0, and hematocrit 30.8. Sodium 139, potassium 4.3, chloride 111, CO2 of 21, BUN 13, creatinine 0.65, estimated GFR 89, glucose 135, calcium 8.5, phosphorus 2.5, and magnesium 1.8. DIAGNOSTICS: There are no diagnostics to report. IMPRESSION: 1. Post injury day #1 status post ground level fall. 2. Postop day #1 right total hip replacement, status post femoral neck fracture. 3. Acute traumatic pain. 4. Hypokalemia, resolved. PLAN: We will continue to watch the patient's electrolytes. We will encourage physical therapy after epidural complete possibly postop day #2. We will leave Masterson in place as long as the patient has epidural. We will encourage pulmonary toilet. The patient is on chemical DVT prophylaxis. We will screen the patient for skilled rehab. The patient was examined with Dr. Maddox. Job ID: [id number]
[2018-10-09 06:58] LABS: Hemoglobin 9.1 g/dL (12.0-16.0); Mean Corpuscular HGB CONC 32.8 g/dL (32.0-36.0); Mean Corpuscular Hemoglobin 31.6 pg (27.0-31.0); Mean Corpuscular Volume 96.4 fL (78.0-98.0); Platelet Count 173 thou/uL (130-400); Red Blood Cell (RBC) Count 2.87 mill/uL (4.20-5.40)
[2018-10-09] MEDS: Senokot S 8.6-50 MG TAB PO SCH (08:32)
[2018-10-09] MEDS: Famotidine 20 MG TAB PO SCH (08:32)
[2018-10-09] MEDS: Multivitamin W/ Minerals 1 TAB PO SCH (08:32)
[2018-10-09] MEDS: Aspirin 81 mg Enteric Coated Tablet PO SCH (08:32)
[2018-10-09] MEDS: Ferrous Gluconate 324 MG TAB PO SCH (08:32)
[2018-10-09] MEDS: Acetaminophen 325 MG TAB PO SCH ×2 (11:45→15:21)
[2018-10-09] MEDS ORDERED: Ibuprofen 600 MG TAB PO SCH (11:45)
[2018-10-09] MEDS ORDERED: traMADol HCl 50 MG TAB PO PRN ×2 (12:11)
[2018-10-09 16:25] VITALS: BP 95/55; TEMP 98.1
[2018-10-09] MEDS ORDERED: Magnesium Oxide 400 MG TAB PO SCH (21:00)
--- NOTE | 2018-10-10 04:28 | DIS ---
DATE OF ADMISSION: 10/06/2018 DATE OF DISCHARGE: 10/09/2018 DISCHARGE ATTENDING: Dr. Maddox. CONSULT: Orthopedic Surgery. PROCEDURES: 1. On 10/06/2018, hip x-ray, right femoral neck fracture. 2. On 10/06/2018, pelvis x-ray, impression; mildly displaced right femoral neck fracture. 3. On 10/06/2018, chest x-ray, impression; unremarkable anterior-posterior view chest. 4. On 10/07/2018, hip x-ray, impression; status post right hip arthroplasty without evidence of complication. PRIMARY DIAGNOSIS: Right femoral neck fracture. SECONDARY DIAGNOSIS: Acute traumatic pain, secondary to fall. DISCHARGE MEDICATIONS: 1. Tramadol 50 mg one to two tablets as needed for pain. 2. Artificial Tears. 3. Aspirin 81 mg b.i.d. 4. Calcium carbonate 500 mg q.4 hours. 5. Benadryl 25 mg p.o. q.3 hours as needed for itching. 6. Iron 325 mg b.i.d. with meals. 7. Motrin 600 mg q.8 hours. 8. Magnesium oxide 400 mg tablet b.i.d. x2 doses. 9. Multivitamin one tablet daily. 10. Zofran ODT 4 mg tablet as needed. 11. Scopolamine patch 1.5 mg q.3 days. There were no discontinued medications. HISTORY OF PRESENT ILLNESS AND HOSPITAL COURSE: This is a 73-year-old female, who was initially seen on 09/25/2018 with a ground-level fall. At that time, x-rays were negative. She was brought back into the emergency room on 10/06/2018. Repeat radiographs showed a nondisplaced right femoral neck fracture. Trauma services was asked to admit the patient and Orthopedics was consulted. The patient had no syncopal events or hitting her head with the initial fall. The patient received a right hip arthroplasty on 10/07/[address] Wharton without any complications. The patient did have a epidural postop for 2 days for pain. The epidural was discontinued early this morning and so was the Masterson catheter. The patient was able to void without any difficulty. The patient's pain was well controlled with p.o. medications. The patient has been able to participate with physical therapy. On the day of discharge, the patient was seen and evaluated by Dr. Maddox. The patient had no complaint and reports pain well controlled. The patient's vital signs were stable on the day of discharge and exam was unremarkable including cardiopulmonary and GI exam. The patient was deemed stable for discharge to senior care facility for continued physical and occupational therapy. DISPOSITION: Stable. DISCHARGE INSTRUCTIONS: 1. Location: assisted facility. 2. Diet: Regular diet. 3. Activity: Orthopedic limitations, hip precautions. Up with assistance. Weightbearing as tolerated. FOLLOWUP: 1. With Dr. Maddox as needed. 2. With Dr. Wharton in [address] Mei, primary care for provider as needed. Job ID: [id number] MTDD
== END 2018-10-09 16:25 | DRG 470 ==
LOC: ERS 15:52 → SURG B 20:34
PROVIDERS: ADMIT Specialist; ATTEND Specialist
PROC: 0SR9039 Replacement of Right Hip Joint with Ceramic Synthetic Substitute, Cemented, Open Approach (ICD-10-PCS; principal; 2018-10-07)
DX: S72.001A Fracture of unspecified part of neck of right femur, initial encounter for closed fracture (principal); D62 Acute posthemorrhagic anemia; F17.210 Nicotine dependence, cigarettes, uncomplicated; E83.42 Hypomagnesemia; E87.6 Hypokalemia; Z88.5 Allergy status to narcotic agent; Z90.89 Acquired absence of other organs; W18.30XA Fall on same level, unspecified, initial encounter
CPT/HCPCS: 36415; 71045; 72170; 80048; 80053; 81003; 81015; 82550; 83735; 84100; 85025; 85027; 85610; 85730; 86850; 86900; 86901; C1776; J0131; J0670; J2250; J2270; J2405; J2704; J3010; J3370; J3480; J7050; Q0163

== ENCOUNTER 2018-10-30 15:50 | Emergency (ER) | payer MEDICARE ==
[~2018-10-30 15:50] MED LIST: ISOVUE-370 76%-LOCM 1 ML ONE
[2018-10-30 17:09] LABS: #Basophils 0.1 thou/uL (0.0-0.2); #Monocytes 0.5 thou/uL (0.11-0.59); #Neutrophils 7.7 thou/uL (1.40-6.50); %Basophils 0.7 % (0.0-1.0); %Eosinophils 0.3 % (0.0-10.0); %Lymphocytes 19.9 % (21.0-51.0); %Monocytes 4.4 % (0.0-10.0); %Neutrophils 74.7 % (42.0-75.0); Hemoglobin 10.9 g/dL (12.0-16.0); Mean Corpuscular HGB CONC 31.5 g/dL (32.0-36.0); Mean Corpuscular Hemoglobin 29.7 pg (27.0-31.0); Mean Corpuscular Volume 94.5 fL (78.0-98.0); Mean Platelet Volume 7.9 fL (7.4-10.4); Platelet Count 279 thou/uL (130-400); RBC Distribution Width 12.6 % (11.5-14.5); Red Blood Cell (RBC) Count 3.67 mill/uL (4.20-5.40); White Blood Cell (WBC) Count 10.3 thou/uL (4.8-10.8)
[2018-10-30 17:29] LABS: ALT (SGPT) 12 U/L (8-55); AST (SGOT) 20 U/L (5-34); Albumin 3.8 g/dL (3.4-4.8); Alkaline Phosphatase 117 U/L (40-150); Anion Gap 13 mmol/L (10-20); BUN (Urea Nitrogen) 9 mg/dL (9.8-20.1); Bilirubin, Total 0.4 mg/dL (0.2-1.2); Calc. Creatinine Clearance 0 mL/min (70-130); Calcium 9.8 mg/dL (7.8-10.44); Carbon Dioxide 25 mmol/L (23-31); Chloride 104 mmol/L (98-107); Estimated GFR-MDRD Greater than 90; Globulin 3.6 g/dL (2.4-3.5); Glucose 106 mg/dL (83-110); Potassium 3.8 mmol/L (3.5-5.1); Protein, Total 7.4 g/dL (6.0-8.3); Sodium 138 mmol/L (136-145)
[2018-10-30] MEDS ORDERED: Ondansetron PF 4 MG/2 ML Vial ONE ×2 (18:27→19:05)
[2018-10-30 18:52] LABS: Bilirubin Small (Negative); Blood, Urine Small (Negative); Clarity CLOUDY (Clear); Glucose, Urine (Dipstick) Negative (Negative); Leukocyte Small (Negative); Nitrite Negative (Negative); Protein, Urine (Dipstick) Trace mg/dL (Neg-Trace); Specific Gravity, Urine 1.021 (1.002-1.036)
[2018-10-30 18:55] LABS: Bacteria/HPF None Seen HPF (None Seen); Hyaline Casts/LPF 4-6 HYALINE CAST LPF (0-3 Hyaline); Pathc Cast-AUWi Flag 0.72 (0-2.49)
--- NOTE | 2018-10-30 19:19 | RAD ---
ABDOMINAL SURVEY WITH UPRIGHT CHEST AND TWO VIEW ABDOMEN: 10/30/18 INDICATIONS: Abdominal pain and vomiting. Comparison made to abdominal films of 2016. Compared to abdominal CT of 10/28/17. The lungs appear clear with no evidence of acute infiltrate. No free intraperitoneal air. Bowel gas pattern unremarkable with scattered stool and gas throughout t he colon. Small bowel gas pattern unremarkable. An amorphous calcification is again seen and this is shown on CT to represent a renal cortical calcification, stable on the right. IMPRESSION: No acute findings. POS: [facility]
--- NOTE | 2018-10-30 20:10 | CT ---
CT ABDOMEN AND PELVIS WITH CONTRAST: INDICATIONS: Abdominal pain with vomiting. TECHNIQUE: Multiple axial tomograms obtained through the abdomen and pelvis with IV enhancement. FINDINGS: The lung bases are clear. The liver, spleen, and pancreas are unremarkable. The kidneys are unremar kable. There are bilateral small cystic lesions, which appear stable when compared to the prior CT o f 10/28/2017. There is a calcification in the right renal cortex, which was present previously and i s stable. The urinary bladder is contracted and not well evaluated. Small bowel loops are of normal caliber. There is stool throughout the colon. The left colon is nondistended. The aorta shows atheroscleroti c change but normal caliber. No adenopathy. A right hip prosthesis is noted, consistent with a history of recent hip surgery. Degenerative spine change. IMPRESSION: No acute process identified. No significant change from prior CT. POS: [facility]
== END 2018-10-30 20:57 | disposition home or self-care (01) ==
LOC: ERS 15:50
DX: R11.2 Nausea with vomiting, unspecified (principal); R10.84 Generalized abdominal pain; E78.5 Hyperlipidemia, unspecified; F17.210 Nicotine dependence, cigarettes, uncomplicated
CPT/HCPCS: 36415; 74022; 74177; 80053; 81003; 81015; 83690; 84484; 85025; 93005; 96361; 96374; 96376; J2405; Q9966

== ENCOUNTER 2023-05-17 08:47 | Outpatient (CLI) | payer MEDICARE ==
[2023-05-17] MEDS ORDERED: Iopamidol 370 76% 100 ML VIAL ONE (15:28)
== END 2023-05-17 08:48 | disposition home or self-care (01) ==
LOC: CT 08:47
PROVIDERS: ATTEND Physician Assistant Medical
DX: K59.09 Other constipation (principal); R14.0 Abdominal distension (gaseous); R10.84 Generalized abdominal pain; N28.89 Other specified disorders of kidney and ureter; I70.0 Atherosclerosis of aorta; M47.816 Spondylosis without myelopathy or radiculopathy, lumbar region; M51.36 Other intervertebral disc degeneration, lumbar region; M89.38 Hypertrophy of bone, other site; M81.0 Age-related osteoporosis without current pathological fracture
CPT/HCPCS: 74177; 82565; Q9967